=== PATIENT | female | born 1940 | race Caucasian/White ===

== ENCOUNTER 2024-08-30 19:06 | Outpatient (CLI) | payer MEDICARE, BC, SELFPAY | END 2024-08-30 19:07 | disposition home or self-care (01) | PROVIDERS: Visit Provider Family Medicine | DX: R53.1 Weakness (principal); R42 Dizziness and giddiness; R41.0 Disorientation, unspecified | CPT/HCPCS: A0425; A0429 ==

== ENCOUNTER 2024-08-30 19:48 | Observation (INO) | payer MEDICARE, BC, SELFPAY ==
[2024-08-30] VITALS (18 sets, daily range): BP systolic 109–128; BP diastolic 65–76; PULSE 84–100; RESP 16; TEMP 36.9; O2SAT 81–99; BMI 25.1
--- NOTE | 2024-08-30 20:05 | ED.GENADULT ---
HPI - General Adult General Chief complaint: Weakness Stated complaint: Fall Time Seen by Provider: 08/30/24 19:51 History of Present Illness HPI narrative: EMS states pt lives with [place] a farm and they do not see doctors. Pt is not on any medication. EMS states pt did not fall, she is merely weak and is experiencing confusion. Pt states to this nurse that Shantanu Conley is the president and she has lived on her farm for 150 years. 84-year-old woman presenting to the emergency department via EMS. Concern apparently of weakness. She denies any falls although does endorse a fall where she struck her head on stool few days ago. Apparently was well since that time. Denies any neck or back pain. Living with her her farm she reports. Feels generally well at this time and not sure why she is here other than her is to concerned. She felt a little weak earlier now she does not. Has no pain anywhere. No dysuria. No fevers. is not yet arrived Underlying history of dementia. Later with Damian present, clarifies that has been increasingly weak and reached a tipping point today. He is having increasing difficulty managing her physical needs at home and keeping her clean. He has a very hard time picking her up when she falls. Today she just could not get off the toilet. They do not have family around they feel can help at this point. Had been anticipating moving to town for more help. Related Data Home Medications ?Medication ?Instructions ?Recorded ?Confirmed No Known Home Medications 08/30/24 08/30/24 Allergies Allergy/AdvReac Type Severity Reaction Status Date / Time No Known Drug Allergies Allergy Verified 08/30/24 20:02 Review of Systems Status of ROS: Reports: unobtainable due to mental status (Answering only in the immediate) [facility] Social History Narrative: She and her live independently in their farm house. She was a homemaker. She does not smoke or drink alcohol. What is your current living situation?: I presently have a place to live Problems where you live: no known problems Problems where you live details: Denies In the past 12 months, utilities in danger of being shut off: no In past 12 months, lack of transportation kept you from medical appts, meetings, work, or getting things needed for daily living: no In the past 12 mos, have been you worried that your food would run out before you had money to buy more?: never true In the past 12 mos, the food you bought just didn't last and you didn't have money to buy more?: never true Smoking Status: Unknown if ever smoked Do you use any of these nicotine containing products: None How often do you have a drink containing alcohol: never How often do you have six or more drinks on one occasion: Never AUDIT-C Alcohol total score: 0 Non-prescribed substance use: denies use Caffeine: Yes (Coffee every now and then) How often does anyone, including family, friends and others, physically hurt you: never How often does anyone, including family, friends and others, insult or talk down to you: never How often does anyone, including family, friends and others, threaten you with harm: never How often does anyone, including family, friends and others, scream or curse at you: never service: No Exam Narrative: Exam Narrative: Very pleasant. NAD. Cranial nerves 2-12 intact. Resting easily in the bed. Breathing easily. Lungs are clear. Heart in mildly elevated rate and a regular rhythm. Distant but no murmur detected. Abdomen is soft nontender. Head looks to be atraumatic. Neck supple nontender. Back with moderate kyphosis of the thoracic spine is also nontender. No deformity noted. Extremities are without edema. She has some inversion of the left ankle more so than the right. Const: Vital Signs, click to edit/add: Vital Signs - 24 hr 08/30/24 19:54 08/30/24 19:54 08/30/24 19:57 Temperature 98.4 F Pulse Rate 100 97 Pulse Rate [Right Pulse Oximeter] 96 Respiratory Rate 16 Blood Pressure 116/76 Blood Pressure [Ri ght Upper Arm] 116/70 Pulse Oximetry 98 89 81 L Oxygen Delivery Me thod Room Air 08/30/24 20:00 08/30/24 20:15 08/30/24 20:18 Temperature Pulse Rate 96 94 Pulse Rate [Right Pulse Oximeter] Respiratory Rate Blood Pressure Blood Pressure [Ri ght Upper Arm] Pulse Oximetry 90 95 99 Oxygen Delivery Me thod 08/30/24 20:30 08/30/24 20:45 08/30/24 21:07 Temperature Pulse Rate 94 94 Pulse Rate [Right Pulse Oximeter] Respiratory Rate Blood Pressure 128/65 Blood Pressure [Ri ght Upper Arm] Pulse Oximetry 96 96 Oxygen Delivery Me thod 08/30/24 21:08 08/30/24 21:15 08/30/24 21:30 Temperature Pulse Rate 90 88 84 Pulse Rate [Right Pulse Oximeter] Respiratory Rate Blood Pressure Blood Pressure [Ri ght Upper Arm] Pulse Oximetry 97 96 97 Oxygen Delivery Me thod 08/30/24 21:31 08/30/24 21:45 08/30/24 22:01 Temperature Pulse Rate 88 85 84 Pulse Rate [Right Pulse Oximeter] Respiratory Rate Blood Pressure 117/76 109/66 Blood Pressure [Ri ght Upper Arm] Pulse Oximetry 98 97 95 Oxygen Delivery Me thod 08/30/24 22:02 08/30/24 22:15 08/30/24 22:30 Temperature Pulse Rate 84 86 84 Pulse Rate [Right Pulse Oximeter] Respiratory Rate Blood Pressure Blood Pressure [Ri ght Upper Arm] Pulse Oximetry 95 96 98 Oxygen Delivery Me thod 08/30/24 22:31 Temperature Pulse Rate 86 Pulse Rate [Right Pulse Oximeter] Respiratory Rate Blood Pressure 110/73 Blood Pressure [Ri ght Upper Arm] Pulse Oximetry 98 Oxygen Delivery Me thod Documenting provider has reviewed patient's vital signs: yes Course Vital Signs Vital signs: Initial Vital Signs Temperature 98.4 F 08/30/24 19:54 Temperature Source Temporal Artery Scan 08/30/24 19:54 Pulse Rate 100 08/30/24 19:54 Pulse Rhythm Regular 08/30/24 19:54 Pulse Strength 3+ Normal 08/30/24 19:54 Respiratory Rate 16 08/30/24 19:54 Blood Pressure 116/70 08/30/24 19:54 Blood Pressure Mean 85 08/30/24 19:54 Blood Pressure Position Supine 08/30/24 19:54 Pulse Oximetry 98 08/30/24 19:54 Oxygen Delivery Method Room Air 08/30/24 19:54 Vital Signs Temperature 98.4 F 08/30/24 19:54 Pulse Rate 100 08/30/24 19:54 Respiratory Rate 16 08/30/24 19:54 Blood Pressure 116/70 08/30/24 19:54 Pulse Oximetry 98 08/30/24 19:54 Oxygen Delivery Method Room Air 08/30/24 19:54 Temperature 98.4 F 08/31/24 00:53 Pulse Rate 88 08/31/24 00:53 Respiratory Rate 16 08/31/24 00:53 Blood Pressure 124/75 08/31/24 00:53 Pulse Oximetry 98 08/31/24 00:53 Oxygen Delivery Method Room Air 08/31/24 00:53 Medical Decision Making MDM Narrative Medical decision making narrative: Will check some basic labs and urine. Look for sources of infection particularly in lungs though she does have a respiratory symptoms and urine. I suspect there is some malnutrition here. Waiting for more information upon arrival of . Will continue to monitor here in the emergency department. Chest x-ray one-view chest independently reviewed by me is without clear infiltrate. INDICATION: Weakness. TECHNIQUE: Chest 1 views. COMPARISON: None. FINDINGS: Cardiovascular and mediastinum: Heart size and vasculature are normal in caliber and appearance. Lungs and pleural spaces: Interstitial prominence. No sign of infiltrate or mass. No sign of pleural effusion. No pneumothorax. Bones and soft tissues: No significant findings. IMPRESSION: Interstitial prominence, possibly chronic lung disease or infection. No focal consolidations. Dictated by Dandre Thibodeaux MD @ 08/30/2024 11:01:29 PM With recent fall weakness did decide to CT head Unremarkable for acute abnormality per my independent review. INDICATION: Weakness. Recent head injury. TECHNIQUE: Head CT without contrast. COMPARISON: None. FINDINGS: CSF spaces: Within normal limits for age. Brain parenchyma and extra-axial spaces: There are nonspecific low attenuation white matter changes consistent with chronic microvascular disease. No sign of mass, hemorrhage, or midline shift. Skull base and calvarium: The visualized paranasal sinuses and mastoid air cells demonstrate no acute or significant findings. The visualized orbits are grossly unremarkable. No skull fractures. IMPRESSION: No acute or significant findings. Please note that all CT scans at this facility use dose modulation, iterative reconstruction, and/or weight-based dosing when appropriate to reduce radiation dose to as low as reasonably achievable. Dictated by Ivan Adkins MD @ 08/30/2024 11:03:59 PM Labs are reassuring In attempting to mobilize in the emergency department requires 2 assist for transfer. Sounds like is too much to manage for at home. Have spoken with hospitalist who is thankfully accepting for admission. Lab Data Lab results reviewed: Yes I reviewed the patient's lab results Labs: Lab Results 08/30/24 08/30/24 08/30/24 Range/Units 09:05 20:18 22:15 WBC 10.47 (4.50-11.00) K/uL RBC 4.36 (4.00-5.20) m/uL Hgb 12.1 (12.0-16.0) gm/dL Hct 37.5 (33.0-51.0) % MCV 86 (80-100) fL MCH 28 (26-34) pg MCHC 32 (32-36) gm/dL RDW Coeff of Deep 12.8 (11.5-15.5) % Plt Count 448 H (140-440) K/uL Neut % (Auto) 76.6 H (42.0-72.0) % Lymph % (Auto) 6.8 L (20-44) % [place] % (Auto) 11.7 H (0.0-11.0) % Eos % (Auto) 3.0 (0.0-7.0) % Baso % (Auto) 0.3 (0.0-3.0) % Neut # (Auto) 8.00 H (1.7-7.0) K/uL Lymph # (Auto) 0.70 L (0.90-2.90) K/uL [place] # (Auto) 1.20 H (0.00-0.90) K/UL Eos # (Auto) 0.31 (0.00-0.50) K/uL Baso # (Auto) 0.03 (0.00-0.30) K/uL Abs Immat Gran (auto) 0.17 (0.00-0.30) K/uL Imm/Tot Granulo (auto) 1.6 % Sodium 136 (135-149) mmol/L Potassium 4.4 (3.6-5.1) mmol/L Chloride 99 (96-114) mmol/L Carbon Dioxide 30 (20-32) mmol/L Anion Gap 7 (7-15) mEq/L BUN 16 (7-30) mg/dL Creatinine 0.8 (0.5-1.5) mg/dL Estimated Creat Clear 40.72 Estimated GFR 73 ml/min Glucose 133 H (60-115) mg/dL Calcium 9.6 (8.4-10.6) mg/dL Troponin I < 0.01 (0.01-0.04) ng/mL Urine Color Yellow (Yellow) Urine Appearance Cloudy A (Clear) Urine pH 6.0 (5.0-8.5) Ur Specific [place] 1.025 (1.000-1.030) Urine Protein 1+ A (Negative) Urine Glucose (UA) Negative (Negative) Urine Ketones 1+ A (Negative) Urine Blood Negative (Negative) Urine Nitrite Negative (Negative) Urine Bilirubin 2+ A (Negative) Urine Urobilinogen 1.0 (0.2-1.0) Ur Leukocyte Esterase Negative (Negative) Urine RBC 0-2 (0-2) Urine WBC 2-5 (0-5) Ur Squamous Epith Cells Few (None-Few) Amorphous Sediment Moderate A (None) Urine Bacteria Few A (None) Urine Mucus Few A (None) SARS-CoV-2 (PCR) Negative SARS-CoV-2 (Negative) Influenza Type A (PCR) Negative PCR FLU A (Negative) Influenza Type B (PCR) Negative PCR FLU B (Negative) RSV (PCR) Negative PCR RSV (Negative) Discharge Plan Discharge Clinical Impression: Weakness, Dementia Patient Disposition: Admitted As Observation Condition: Stable
[2024-08-30 20:38] LABS: Basophils Absolute Auto 0.03 K/uL (0.00-0.30); Basophils Percent Auto 0.3 % (0.0-3.0); Eosinophils Absolute Auto 0.31 K/uL (0.00-0.50); Hematocrit 37.5 % (33.0-51.0); Hemoglobin* 12.1 gm/dL (12.0-16.0); Immature Granulocytes Abs Auto 0.17 K/uL (0.00-0.30); Immature Granulocytes Pct Auto 1.6 %; Lymphocytes Percent Auto 6.8 % (20-44); Mean Corpuscular HGB Conc 32 gm/dL (32-36); Mean Corpuscular Hemoglobin 28 pg (26-34); Mean Corpuscular Volume 86 fL (80-100); Monocytes Percent Auto 11.7 % (0.0-11.0); Neutrophils Percent Auto 76.6 % (42.0-72.0); Platelet Count* 448 K/uL (140-440); RDW Coefficient of Variation % 12.8 % (11.5-15.5); Red Blood Count 4.36 m/uL (4.00-5.20); White Blood Count* 10.47 K/uL (4.50-11.00)
[2024-08-30 20:47] LABS: Slide Review Reflex No
[2024-08-30 20:49] LABS: Chloride* 99 mmol/L (96-114); Sodium* 136 mmol/L (135-149)
[2024-08-30 20:50] LABS: Potassium* 4.4 mmol/L (3.6-5.1)
[2024-08-30 20:52] LABS: Blood Urea Nitrogen* 16 mg/dL (7-30); Creatinine* 0.8 mg/dL (0.5-1.5); Est. Creatinine Clearance* 40.72; Estimated Glomerular Filt Rate 73 ml/min
[2024-08-30 20:53] LABS: Anion Gap 7 mEq/L (7-15); Calcium* 9.6 mg/dL (8.4-10.6); Carbon Dioxide* 30 mmol/L (20-32); Glucose* 133 mg/dL (60-115)
[2024-08-30 21:10] LABS: Appearance Urine Cloudy (Clear); Bilirubin Urine 2+ (Negative); Blood Urine Negative (Negative); Color Urine Yellow (Yellow); Glucose Urine Negative (Negative); Ketones Urine 1+ (Negative); Leukocyte Esterase Urine Negative (Negative); Nitrite Urine Negative (Negative); Protein Urine 1+ (Negative); Specific Gravity Urine 1.025 (1.000-1.030)
[2024-08-30 21:10] LABS: Troponin I* < 0.01 ng/mL (0.01-0.04)
[2024-08-30 21:17] LABS: Amorphous Sediment Urine Moderate; Bacteria Urine Few; RBC Urine 0-2 (0-2); Squamous Epithelial Cell Urine Few (None-Few)
[2024-08-30 21:18] LABS: Mucus Urine Few
--- NOTE | 2024-08-30 22:10 | CRLHL7_ITS ---
For Patients: As a result of the Century Cures Act, medical imaging exams and procedure reports are released immediately into your electronic medical record. You may view this report before your referring provider. If you have questions, please contact your health care provider. INDICATION: Weakness. TECHNIQUE: Chest 1 views. COMPARISON: None. FINDINGS: Cardiovascular and mediastinum: Heart size and vasculature are normal in caliber and appearance. Lungs and pleural spaces: Interstitial prominence. No sign of infiltrate or mass. No sign of pleural effusion. No pneumothorax. Bones and soft tissues: No significant findings. IMPRESSION: Interstitial prominence, possibly chronic lung disease or infection. No focal consolidations. Dictated by Dandre Thibodeaux MD @ 08/30/2024 11:01:29 PM (Electronically Signed)
--- NOTE | 2024-08-30 22:30 | CRLHL7_ITS ---
For Patients: As a result of the Century Cures Act, medical imaging exams and procedure reports are released immediately into your electronic medical record. You may view this report before your referring provider. If you have questions, please contact your health care provider. INDICATION: Weakness. Recent head injury. TECHNIQUE: Head CT without contrast. COMPARISON: None. FINDINGS: CSF spaces: Within normal limits for age. Brain parenchyma and extra-axial spaces: There are nonspecific low attenuation white matter changes consistent with chronic microvascular disease. No sign of mass, hemorrhage, or midline shift. Skull base and calvarium: The visualized paranasal sinuses and mastoid air cells demonstrate no acute or significant findings. The visualized orbits are grossly unremarkable. No skull fractures. IMPRESSION: No acute or significant findings. Please note that all CT scans at this facility use dose modulation, iterative reconstruction, and/or weight-based dosing when appropriate to reduce radiation dose to as low as reasonably achievable. Dictated by Ivan Adkins MD @ 08/30/2024 11:03:59 PM (Electronically Signed)
[2024-08-30 22:57] LABS: PCR FLU A Negative PCR FLU A (Negative); PCR FLU B Negative PCR FLU B (Negative); PCR RSV Negative PCR RSV (Negative); SARS PCR* Negative SARS-CoV-2 (Negative)
[2024-08-31] VITALS (8 sets, daily range): BP systolic 108–127; BP diastolic 70–80; PULSE 84–92; RESP 16–20; TEMP 36.8–37.2; O2SAT 95–98; BMI 20.5
--- NOTE | 2024-08-31 00:54 | P.IMHP_ITS ---
Assessment and Plan Assessment and plan (1) Weakness: Problem comment: - Nothing acute. Gradually more and more weak over months. Occasional falls. I suspect declining cognitive function has also contributed to her staying in bed more and more and likely impaired her executive functioning leading to walking less and less, therefore leading to deconditioning, further exacerbating weakness - She is not having urinary symptoms that would suggest a UTI. No focal symptoms or sudden onset to suggest stroke or AMI. Labs are reassuring. - PT and OT evaluations - SW consult as she may need home health vs SNF vs assisting living Status: Acute (2) Falls: Problem comment: as above Status: Acute (3) Protein-calorie malnutrition, moderate: Problem comment: - Poor appetite and oral intake over months - Some muscle wasting and weakness - Nutritional supplements and consult Status: Acute (4) Cognitive impairment: Problem comment: - OT consulted for MOCA Status: Suspected Hospitalist- H&P: HPI History of Present Illness Time Seen by Provider: 00:15 Date Seen: 08/31/24 Chief complaint: Fall Narrative: Norma Douglas is a 84 year old female who has not seen a doctor in a very long time who came through the ER by EMS for weakness of arms and legs. Her , Brett, is here with her and helps give history. They tell me the weakness has been coming on a long time. When I ask them to pin it down, they say it has been going on many months. There has been no acute change in her condition. Brett tells me that she stays in bed all day and number goes outside anymore. In the last few months it has been harder for her to even get to the bathroom which is only 5-10 feet away from the bed. She is also having more trouble seeing and it sounds like she is being treated for macular degeneration at the local eye clinic. He has several assistive devices at home, including what sounds like lift. Even with these there have been some hairy situations, such as trying to get her in or out of the shower. He's installed handlebars the bathrooms and toilet risers, but even these are not enough help since her arms are also weak. It is getting to the point where he is concerned about her safety and cleanliness. She is not showering, her appetite is very poor, she is having trouble getting around, and lays in bed all day. He tells me that he just can not do it anymore and wants to know what is wrong with her. When I ask about her cognition and memory, he notes that it has been getting worse and she is forgetful some days. Then she each I am is a in in says that he is talking about himself. She denies any chest pain, shortness of breath, recent illness, focal numbness, weakness, or tingling, or urinary symptoms. She is not having any headaches. She occasionally complains of bilateral knee pain, the right hurts worse than the left, but is not hurting today. She had a fall about 3 days ago and hit her head on a stool, but there are no bruises or abrasions left over from that fall. She did not lose consciousness. Review of Systems Status of ROS: Reports: 10 or more systems reviewed and unremarkable except as noted in History and below [facility] Social History (Updated 08/31/24 @ 01:04 by Madina Wood MD) Narrative: She and her live independently in their farm house. She was a homemaker. She does not smoke or drink alcohol. What is your current living situation?: I presently have a place to live Problems where you live: no known problems Problems where you live details: Denies In the past 12 months, utilities in danger of being shut off: no In past 12 months, lack of transportation kept you from medical appts, meetings, work, or getting things needed for daily living: no In the past 12 mos, have been you worried that your food would run out before you had money to buy more?: never true In the past 12 mos, the food you bought just didn't last and you didn't have money to buy more?: never true Smoking Status: Unknown if ever smoked Do you use any of these nicotine containing products: None How often do you have a drink containing alcohol: never How often do you have six or more drinks on one occasion: Never AUDIT-C Alcohol total score: 0 Non-prescribed substance use: denies use Caffeine: Yes (Coffee every now and then) How often does anyone, including family, friends and others, physically hurt you : never How often does anyone, including family, friends and others, insult or talk down to you: never How often does anyone, including family, friends and others, threaten you with harm: never How often does anyone, including family, friends and others, scream or curse at you: never service: No Meds Home Medications and Allergies Home Medications ?Medication ?Instructions ?Recorded ?Confirmed ?Type No Known Home Medications 08/30/24 06/0 11/16 History Allergies Allergy/AdvReac Type Severity Reaction Status Date / Time No Known Drug Allergies Allergy Verified 08/30/24 20:02 Exam Narrative: Exam Narrative: General: No acute distress. Awake alert oriented to self, place, situation. HEENT: Normocephalic atraumatic, pupils equally round and reactive to light and accommodation. Oropharynx clear. Mucous membranes are moist. No cervical lymphadenopathy, thyromegaly or carotid bruits. No JVD. Cardiovascular: Regular rate and rhythm. No murmurs, gallops, or rubs. Chest: No increased work of breathing. Clear to auscultation bilaterally. No crackles or wheezes. Abdomen: Bowel sounds present. Soft, nondistended, nontender. No hepatosplenomegaly or masses. Extremities: Some muscle wasting of all extremities, especially noticeable in her hands. Full range of motion of hips and knees. There is some crepitus of the knees bilaterally. They are nontender to palpation. No edema, no cyanosis or clubbing. Skin: No jaundice, no pallor, no rashes. Neuro: There are no focal deficits. Romberg is negative. Cranial nerves 2-12 are intact. Extraocular movements are full. No nystagmus. No facial asymmetry. Tongue is midline. Peripheral vision and vision are grossly intact. Strength is 5/5 in all 4 extremities. DTRs intact and symmetric. Light touch sensation is intact in face body and extremities. Coordination is intact in upper and lower extremities. Const: Vital Signs, click to edit/add: Vital Signs - 24 hr 08/30/24 19:54 08/30/24 19:54 08/30/24 19:57 Temperature 98.4 F Pulse Rate 100 97 Pulse Rate [Right Pulse Oximeter] 96 Respiratory Rate 16 Blood Pressure 116/76 Blood Pressure [Ri ght Upper Arm] 116/70 Pulse Oximetry 98 89 81 L Oxygen Delivery Me thod Room Air 08/30/24 20:00 08/30/24 20:15 08/30/24 20:18 Temperature Pulse Rate 96 94 Pulse Rate [Right Pulse Oximeter] Respiratory Rate Blood Pressure Blood Pressure [Ri ght Upper Arm] Pulse Oximetry 90 95 [facility] 08/[facility] 20:30 08/30/24 20:45 08/30/24 21:07 Temperature Pulse Rate 94 94 Pulse Rate [Right Pulse Oximeter] Respiratory Rate Blood Pressure 128/65 Blood Pressure [Ri ght Upper Arm] Pulse Oximetry 96 96 [facility] 08/30/24 21:08 08/30/24 21:15 08/30/24 21:30 Temperature Pulse Rate 90 88 84 Pulse Rate [Right Pulse Oximeter] Respiratory Rate Blood Pressure Blood Pressure [Ri ght Upper Arm] Pulse Oximetry 97 96 97 [facility] 08/30/24 21:31 08/30/24 21:45 08/30/24 22:01 Temperature Pulse Rate 88 85 84 Pulse Rate [Right Pulse Oximeter] Respiratory Rate Blood Pressure 117/76 109/66 Blood Pressure [Ri ght Upper Arm] Pulse Oximetry 98 97 95 [facility] 08/30/24 22:02 08/30/24 22:15 08/30/24 22:30 Temperature Pulse Rate 84 86 84 Pulse Rate [Right Pulse Oximeter] Respiratory Rate Blood Pressure Blood Pressure [Ri ght Upper Arm] Pulse Oximetry 95 96 98 [facility] 08/30/24 22:31 Temperature Pulse Rate 86 Pulse Rate [Right Pulse Oximeter] Respiratory Rate Blood Pressure 110/73 Blood Pressure [Ri ght Upper Arm] Pulse Oximetry 98 [facility]xygen [facility] - H&P: Result Labs Labs: Short CBC 08/30/24 Range/Units 20:18 WBC 10.47 (4.50-11.00) K/uL Hgb 12.1 (12.0-16.0) gm/dL Hct 37.5 (33.0-51.0) % Plt Count 448 H (140-440) K/uL BMP 08/30/24 20:18 Sodium 136 Potassium 4.4 Chloride 99 Carbon Dioxide 30 BUN 16 Creatinine 0.8 Glucose 133 H Calcium 9.6 Cardiac Enzymes 08/30/24 Range/Units 20:18 Troponin I < 0.01 (0.01-0.04) ng/mL Urine 08/30/24 Range/Units 09:05 Urine Color Yellow (Yellow) Urine Appearance Cloudy A (Clear) Urine pH 6.0 (5.0-8.5) Ur Specific [place] 1.025 (1.000-1.030) Urine Protein 1+ A (Negative) Urine Glucose (UA) Negative (Negative) Ordering Physician: Rustam Thomas M.D. Date of Service: 08/30/24 Procedure(s): XR chest 1V Accession Number(s): [id number] cc: Provider,Not a Local; Rustam Thomas M.D.~ For Patients: As a result of the Cures Act, medical imaging exams and procedure reports are released immediately into your electronic medical record. You may view this report before your referring provider. If you have questions, please contact your health care provider. INDICATION: Weakness. TECHNIQUE: Chest 1 views. COMPARISON: None. FINDINGS: Cardiovascular and mediastinum: Heart size and vasculature are normal in caliber and appearance. Lungs and pleural spaces: Interstitial prominence. No sign of infiltrate or mass. No sign of pleural effusion. No pneumothorax. Bones and soft tissues: No significant findings. IMPRESSION: Interstitial prominence, possibly chronic lung disease or infection. No focal consolidations. Dictated by Dandre Thibodeaux MD @ 08/30/2024 11:01:29 PM (Electronically Signed) Ordering Physician: Rustam Thomas M.D. Date of Service: 08/30/24 Procedure(s): CT head/brain wo con Accession Number(s): [id number] cc: Provider,Not a Local; Rustam Thomas M.D.~ For Patients: As a result of the s Act, medical imaging exams and procedure reports are released immediately into your electronic medical record. You may view this report before your referring provider. If you have questions, please contact your health care provider. INDICATION: Weakness. Recent head injury. TECHNIQUE: Head CT without contrast. COMPARISON: None. FINDINGS: CSF spaces: Within normal limits for age. Brain parenchyma and extra-axial spaces: There are nonspecific low attenuation white matter changes consistent with chronic microvascular disease. No sign of mass, hemorrhage, or midline shift. Skull base and calvarium: The visualized paranasal sinuses and mastoid air cells demonstrate no acute or significant findings. The visualized orbits are grossly unremarkable. No skull fractures. IMPRESSION: No acute or significant findings. Please note that all CT scans at this facility use dose modulation, iterative reconstruction, and/or weight-based dosing when appropriate to reduce radiation dose to as low as reasonably achievable. Dictated by Ivan Adkins MD @ 08/30/2024 11:03:59 PM (Electronically Signed)
--- NOTE | 2024-08-31 06:37 | PC.NURSE ---
ADMISSION/SHIFT NOTE: Pt admitted at 0046 for weakness and increased confusion. Pt is alert and oriented to self, confused on situation/place/timing. Pt pleasantly confused, cooperative with cares. Dementia at baseline, caregiver is patient's . Patient unable to answer some of the questions such as pharmacy and medical history. Pt hallucinated overnight, seeing a half naked woman and man outside of her window, easily reoriented. Up with a 2 assist and [place] steady to BSC, continent of urine. VSS on room air. Denies pain. Admitted for weakness and potential need for a higher level of care.
--- NOTE | 2024-08-31 13:55 | P.IMPN_ITS ---
Assessment and Plan Assessment and plan (1) Dementia: Problem comment: Fairly severe dementia. Now at a point where her is reporting he is unable to continue to care for her Status: Acute (2) Weakness: Problem comment: - Nothing acute. Gradually more and more weak over months. Occasional falls. I suspect declining cognitive function has also contributed to her staying in bed more and more and likely impaired her executive functioning leading to walking less and less, therefore leading to deconditioning, further exacerbating weakness - She is not having urinary symptoms that would suggest a UTI. No focal symptoms or sudden onset to suggest stroke or AMI. Labs are reassuring. - PT and OT evaluations - SW consult as she may need home health vs SNF vs assisting living Status: Acute (3) Falls: Problem comment: as above Status: Acute (4) Discharge planning issues: Problem comment: is reporting is no longer able to care for her. Status: Acute Plan 84-year-old female with severe dementia living independently with her . He is reporting that he is having trouble providing the care that she needs. Will have social studies department chair and therapy assess her functional capabilities and her long-term needs and discussed with her ongoing plan of care for her Total Time Spent Total Time Spent: Total time spent today is 40 minutes in review of records, coordination of care and discussing with other providers ongoing plan of care Subjective Date Seen: 08/31/24 Interval history: Norma Douglas is a 84 year old female who has not seen a doctor in a very long time who came through the ER by EMS for weakness of arms and legs. Her , Brett, is here with her and helps give history. They tell me the weakness has been coming on a long time. When I ask them to pin it down, they say it has been going on many months. There has been no acute change in her condition. Brett tells me that she stays in bed all day and number goes outside anymore. In the last few months it has been harder for her to even get to the bathroom which is only 5-10 feet away from the bed. She is also having more trouble seeing and it sounds like she is being treated for macular degeneration at the local eye clinic. He has several assistive devices at home, including what sounds like lift. Even with these there have been some hairy situations, such as trying to get her in or out of the shower. He's installed handlebars the bathrooms and toilet risers, but even these are not enough help since her arms are also weak. It is getting to the point where he is concerned about her safety and cleanliness. She is not showering, her appetite is very poor, she is having trouble getting around, and lays in bed all day. He tells me that he just can not do it anymore and wants to know what is wrong with her. When I ask about her cognition and memory, he notes that it has been getting worse and she is forgetful some days. Then she each I am is a in in says that he is talking about himself. She denies any chest pain, shortness of breath, recent illness, focal numbness, weakness, or tingling, or urinary symptoms. She is not having any headaches. She occasionally complains of bilateral knee pain, the right hurts worse than the left, but is not hurting today. She had a fall about 3 days ago and hit her head on a stool, but there are no bruises or abrasions left over from that fall. She did not lose consciousness. 08/31/2024: Patient unable to give any further information today. She is oriented to being in the hospital but otherwise does not know why or how she got here. She has continues to specifically deny any concerns including no cold, cough, fever, sore throat, chest pain, abdominal pain, shortness of breath, lightheadedness, nausea, vomiting, bowel or bladder problems. Exam Narrative: Exam Narrative: She is alert and appears in no distress. Speech is normal. She is oriented to being in the hospital but otherwise can give no significant information about her current situation. Head is without trauma eyes normal. Oropharynx normal. Neck is supple out mass or adenopathy. Respirations are clear to auscultation. Cardiovascular: S1, S2, regular rate and rhythm. Abdomen: Bowel sounds active. Abdomen is soft without tenderness or mass. Extremities without significant edema. She has intact peripheral pulses. She moves all 4 extremities well. Const: Vital Signs, click to edit/add: Vital Signs - 24 hr 08/30/24 19:54 08/30/24 19:54 08/30/24 19:57 Temperature 98.4 F Pulse Rate 100 97 Pulse Rate [Radial ] Pulse Rate [Right Pulse Oximeter] 96 Respiratory Rate 16 Blood Pressure 116/76 Blood Pressure [Le ft Arm] Blood Pressure [Ri ght Upper Arm] 116/70 Pulse Oximetry 98 89 81 L [facility] 08/30/24 20:00 08/30/24 20:15 08/30/24 20:18 Temperature Pulse Rate 96 94 Pulse Rate [Radial ] Pulse Rate [Right Pulse Oximeter] Respiratory Rate Blood Pressure Blood Pressure [Le ft Arm] Blood Pressure [Ri ght Upper Arm] Pulse Oximetry 90 95 99 [facility] 08/30/24 20:30 08/30/24 20:45 08/30/24 21:07 Temperature Pulse Rate 94 94 Pulse Rate [Radial ] Pulse Rate [Right Pulse Oximeter] Respiratory Rate Blood Pressure 128/65 Blood Pressure [Le ft Arm] Blood Pressure [Ri ght Upper Arm] Pulse Oximetry 96 96 [facility] 08/30/24 21:08 08/30/24 21:15 08/30/24 21:30 Temperature Pulse Rate 90 88 84 Pulse Rate [Radial ] Pulse Rate [Right Pulse Oximeter] Respiratory Rate Blood Pressure Blood Pressure [Le ft Arm] Blood Pressure [Ri ght Upper Arm] Pulse Oximetry 97 96 97 [facility]xygen [facility] 08/30/24 21:31 08/30/24 21:45 08/30/24 22:01 Temperature Pulse Rate 88 85 84 Pulse Rate [Radial ] Pulse Rate [Right Pulse Oximeter] Respiratory Rate Blood Pressure 117/76 109/66 Blood Pressure [Le ft Arm] Blood Pressure [Ri ght Upper Arm] Pulse Oximetry 98 97 95 [facility]xygen [facility] 08/30/24 22:02 08/30/24 22:15 08/30/24 22:30 Temperature Pulse Rate 84 86 84 Pulse Rate [Radial ] Pulse Rate [Right Pulse Oximeter] Respiratory Rate Blood Pressure Blood Pressure [Le ft Arm] Blood Pressure [Ri ght Upper Arm] Pulse Oximetry 95 96 98 [facility] 08/30/24 22:31 08/31/24 00:53 08/31/24 00:53 Temperature 98.4 F Pulse Rate 86 Pulse Rate [Radial ] 88 Pulse Rate [Right Pulse Oximeter] Respiratory Rate 16 16 Blood Pressure 110/73 Blood Pressure [Le ft Arm] 124/75 Blood Pressure [Ri ght Upper Arm] Pulse Oximetry 98 98 98 Oxygen Delivery [facility] Room Air Room Air 08/31/24 04:00 08/31/24 08:00 08/31/24 08:00 Temperature 98.2 F 98.6 F Pulse Rate Pulse Rate [Radial ] 84 86 86 Pulse Rate [Right Pulse Oximeter] Respiratory Rate 18 18 18 Blood Pressure Blood Pressure [Le ft Arm] 124/74 120/70 Blood Pressure [Ri ght Upper Arm] Pulse Oximetry 98 96 Oxygen Delivery [facility] Room Air Room Air 08/31/24 11:52 Temperature 98.4 F Pulse Rate Pulse Rate [Radial ] 91 Pulse Rate [Right Pulse Oximeter] Respiratory Rate 18 Blood Pressure Blood Pressure [Le ft Arm] 108/72 Blood Pressure [Ri ght Upper Arm] Pulse Oximetry 96 Oxygen Delivery [facility] Room Air Documenting provider has reviewed patient's vital signs: yes Labs Labs: Laboratory Results - last 24 hr 08/30/24 08/30/24 08/30/24 09:05 20:18 22:15 WBC 10.47 RBC 4.36 Hgb 12.1 Hct 37.5 MCV 86 MCH 28 MCHC 32 RDW Coeff of Deep 12.8 Plt Count 448 H Neut % (Auto) 76.6 H Lymph % (Auto) 6.8 L [place] % (Auto) 11.7 H Eos % (Auto) 3.0 Baso % (Auto) 0.3 Neut # (Auto) 8.00 H Lymph # (Auto) 0.70 L [place] # (Auto) 1.20 H Eos # (Auto) 0.31 Baso # (Auto) 0.03 Abs Immat Gran (auto) 0.17 Imm/Tot Granulo (auto) 1.6 Sodium 136 Potassium 4.4 Chloride 99 Carbon Dioxide 30 Anion Gap 7 BUN 16 Creatinine 0.8 Estimated Creat Clear 40.72 Estimated GFR 73 Glucose 133 H Calcium 9.6 Troponin I < 0.01 Urine Color Yellow Urine Appearance Cloudy A Urine pH 6.0 Ur Specific [place] 1.025 Urine Protein 1+ A Urine Glucose (UA) Negative Urine Ketones 1+ A Urine Blood Negative Urine Nitrite Negative Urine Bilirubin 2+ A Urine Urobilinogen 1.0 Ur Leukocyte Esterase Negative Urine RBC 0-2 Urine WBC 2-5 Ur Squamous Epith Cells Few Amorphous Sediment Moderate A Urine Bacteria Few A Urine Mucus Few A SARS-CoV-2 (PCR) Negative SARS-CoV-2 Influenza Type A (PCR) Negative PCR FLU A Influenza Type B (PCR) Negative PCR FLU B RSV (PCR) Negative PCR RSV
--- NOTE | 2024-08-31 14:16 | PC.NURSE ---
end of shift. pt has been pleasant. she is alert x2. confused to month and year/ she is weak and confused. no pain. she is eating, drinking and voiding. PT and OT worked with her. no SL. was here. Pt was still taking about, seeing a half naked woman and man outside of her window, easily reoriented. Up with a 2 assist and walker to BR and chair, brief is on.
--- NOTE | 2024-08-31 16:19 | PC.SOCIAL ---
Discharge planning: Pt is being recommended by hospital staff to go to a facility at discharge that provides 24/7 assistance and supervision. Pt's states that he can no longer care for her at home. rack room worker met with the pt and her today at length to discuss discharge disposition options. Pt's in interested in [facility] for LTC or [facility] Enh[facility]. rack room worker secure emailed referrals to the Admission Coordinators at both facilities and is waiting for a response on admission status. Both facilities identified that they have female openings, but need to review the referral to see if they can meet the pt's needs. Social work to follow-up as needed.
[2024-09-01] VITALS (7 sets, daily range): BP systolic 91–114; BP diastolic 53–81; PULSE 83–98; RESP 16–20; TEMP 36.7–37; O2SAT 93–97
--- NOTE | 2024-09-01 06:13 | PC.NURSE ---
[id number]: Patient with dementia. Orientated to self and . Pleasant and cooperative. A1-2/walker/GB. Denies pain. Denies CP/N/V.
--- NOTE | 2024-09-01 14:04 | PM.IMPN1 ---
Assessment and Plan Assessment and plan (1) Dementia: Problem comment: Fairly severe dementia. [place] is 6/30 Now at a point where her is reporting he is unable to continue to care for her Status: Acute (2) Weakness: Problem comment: Chronic progressive. She is very sedentary at home. By her 's report she is eating poorly and this is likely contributing. Now needs 24/7 supervision and standby assist with ambulation. Status: Acute (3) Falls: Problem comment: Needs standby assist with standing and transferring Status: Acute (4) Discharge planning issues: Problem comment: is reporting is no longer able to care for her. Looking into alternative care arrangements. Status: Acute Plan Continue patient in hospital pending safe discharge plan. Total time spent is 40 minutes, almost all of that time was spent discussing with and other providers plan of disposition Subjective Date Seen: 09/01/24 Interval history: Norma Douglas is a 84 year old female who has not seen a doctor in a very long time who came through the ER by EMS for weakness of arms and legs. Her , Brett, is here with her and helps give history. They tell me the weakness has been coming on a long time. When I ask them to pin it down, they say it has been going on many months. There has been no acute change in her condition. Brett tells me that she stays in bed all day and number goes outside anymore. In the last few months it has been harder for her to even get to the bathroom which is only 5-10 feet away from the bed. She is also having more trouble seeing and it sounds like she is being treated for macular degeneration at the local eye clinic. He has several assistive devices at home, including what sounds like lift. Even with these there have been some hairy situations, such as trying to get her in or out of the shower. He's installed handlebars the bathrooms and toilet risers, but even these are not enough help since her arms are also weak. It is getting to the point where he is concerned about her safety and cleanliness. She is not showering, her appetite is very poor, she is having trouble getting around, and lays in bed all day. He tells me that he just can not do it anymore and wants to know what is wrong with her. When I ask about her cognition and memory, he notes that it has been getting worse and she is forgetful some days. Then she each I am is a in in says that he is talking about himself. She denies any chest pain, shortness of breath, recent illness, focal numbness, weakness, or tingling, or urinary symptoms. She is not having any headaches. She occasionally complains of bilateral knee pain, the right hurts worse than the left, but is not hurting today. She had a fall about 3 days ago and hit her head on a stool, but there are no bruises or abrasions left over from that fall. She did not lose consciousness. 08/31/2024: Patient unable to give any further information today. She is oriented to being in the hospital but otherwise does not know why or how she got here. She has continues to specifically deny any concerns including no cold, cough, fever, sore throat, chest pain, abdominal pain, shortness of breath, lightheadedness, nausea, vomiting, bowel or bladder problems. 09/01/2024: Patient has no concerns today. I spoke with her at length. We discussed her severe dementia and progressive disability. She needs 24 hour supervision and assistance with ambulation. He is struggling to care for her at home but also struggling about alternative living arrangements for her. It appears quite clear that her problems are progressive and that he will need additional help to care for her, if not now in the near future. On this basis he is considering alternative living arrangements. Exam Narrative: Exam Narrative: She is alert pleasant in no distress she is observed to walk with therapy with standby assist. She is able to feed herself breakfast. Breathing is unlabored. She is pleasant and cooperative. Const: Vital Signs, click to edit/add: Vital Signs - 24 hr 08/31/24 15:25 08/31/24 15:26 08/31/24 19:58 Temperature 98.4 F 98.9 F Pulse Rate [Radial ] 92 92 89 Respiratory Rate 18 18 20 Blood Pressure [Le ft Arm] 124/80 109/78 Pulse Oximetry 98 95 Oxygen Delivery Me [facility]od Room Air Room Air 08/31/24 23:04 09/01/24 02:13 09/01/24 07:48 Temperature 98.4 F 98.3 F 98.1 F Pulse Rate [Radial ] 91 92 95 Respiratory Rate 18 20 18 Blood Pressure [Le ft Arm] 127/75 109/70 99/71 Pulse Oximetry 97 96 97 Oxygen Delivery Me thod Room Air Room Air Room Air 09/01/24 12:41 Temperature 98.6 F Pulse Rate [Radial ] 98 Respiratory Rate 16 Blood Pressure [Le ft Arm] 114/75 Pulse Oximetry 93 Oxygen Delivery Me [facility]od Room Air Documenting provider has reviewed patient's vital signs: yes
--- NOTE | 2024-09-01 14:24 | PC.SOCIAL ---
Discharge planning: Pt's was present while the pt met with PT today. Pt's also spoke to Dr. York at length about future care for his . Pt's decided that he would like to have Leeann from [facility] come assess his . Leeann from [facility] came and assessed the pt and can accept her tomorrow in a room on their Memory Care Unit. Pt's will go over to [facility] this afternoon to finalize paperwork, etc. The [facility] van can pick the pt up tomorrow morning at 11:45am. Social work to follow-up as needed.
--- NOTE | 2024-09-01 23:25 | PC.NURSE ---
Shift Note: Pt requested attempting to use BSC to void. No weakness observed. However, pt significantly desaturates to low 70's just standing/pivoting to BSC and required up to 10 minutes to fully rebound to 88-90% on 3L/O2 via NC. Duo-neb given. Family brought in pt's Trelegy inhaler, she was able to take a dose at HS. With inactivity SpO2= 87-91% on 2L/O2 via NC. Temporal thermometer reading 99.4 and right sided expiratory Rhonchi heard on auscultation. MD updated and CXR obtained and unremarkable. Pt verbalizes increased anxiety about why she isn't improving. Pt stated she has dozed a couple times and woke up in her hospital bed thinking she was holding a cigarette. She asked What do I need to do to get a cigarette around here? Pt also c/o increased abdominal pain/nausea. NG output from [id number]= 400cc. Bowel sounds diminished. No BM.
[2024-09-02 01:34] VITALS: TEMP 36.9
[2024-09-02] MEDS: ACETAMINOPHEN 325 MG TABLET 975 MG PO (01:34)
[2024-09-02 01:37] VITALS: BP 118/88; PULSE 94; RESP 16; TEMP 36.6; O2SAT 97
--- NOTE | 2024-09-02 03:28 | PC.NURSE ---
Acquired Pt at 2300. Pt pleasant and cooperative. Awaiting Dischg to [facility] Wed. Up A1 and voiding. No IV present.
[2024-09-02 07:00] VITALS: BP 109/67; PULSE 81; RESP 18; TEMP 36.3; O2SAT 97
--- NOTE | 2024-09-02 10:48 | PM.DS1 ---
DS: Providers Provider Date Seen: 09/02/24 Date of admission: 08/31/24 00:23 Primary care physician: Not a Local Provider Admitting Clinician: Madina Wood MD Attending Physician on discharge: Chris oYrk MD Date of Discharge: 09/02/24 DS: Diagnosis Discharge Diagnosis (1) Dementia: Status: Acute Problem details: Fairly severe dementia. [place] is 6/30 Now at a point where her is reporting he is unable to continue to care for her (2) Weakness: Status: Acute Problem details: Chronic progressive. She is very sedentary at home. By her 's report she is eating poorly and this is likely contributing. Now needs 24/7 supervision and standby assist with ambulation. (3) Falls: Status: Acute Problem details: Needs standby assist with standing and transferring (4) Discharge planning issues: Status: Acute Problem details: is reporting is no longer able to care for her. Looking into alternative care arrangements. DS: Summary Hospital Course Hospital Course: Norma Douglas is a 84 year old female who has not seen a doctor in a very long time who came through the ER by EMS for weakness of arms and legs. Her , Brett, is here with her and helps give history. They tell me the weakness has been coming on a long time. When I ask them to pin it down, they say it has been going on many months. There has been no acute change in her condition. Brett tells me that she stays in bed all day and number goes outside anymore. In the last few months it has been harder for her to even get to the bathroom which is only 5-10 feet away from the bed. She is also having more trouble seeing and it sounds like she is being treated for macular degeneration at the local eye clinic. He has several assistive devices at home, including what sounds like lift. Even with these there have been some hairy situations, such as trying to get her in or out of the shower. He's installed handlebars the bathrooms and toilet risers, but even these are not enough help since her arms are also weak. It is getting to the point where he is concerned about her safety and cleanliness. She is not showering, her appetite is very poor, she is having trouble getting around, and lays in bed all day. He tells me that he just can not do it anymore and wants to know what is wrong with her. When I ask about her cognition and memory, he notes that it has been getting worse and she is forgetful some days. Then she each I am is a in in says that he is talking about himself. She denies any chest pain, shortness of breath, recent illness, focal numbness, weakness, or tingling, or urinary symptoms. She is not having any headaches. She occasionally complains of bilateral knee pain, the right hurts worse than the left, but is not hurting today. She had a fall about 3 days ago and hit her head on a stool, but there are no bruises or abrasions left over from that fall. She did not lose consciousness. During hospital stay evaluation did not show any acute illness or injury. Patient was not identified with significant chronic medical problems other than dementia. I had ongoing conversation with her about goals of care and prognosis. I anticipate gradual decline in cognitive functioning, worsening deconditioning and fall risk and ongoing problems with poor appetite and poor nutrition. Status at Discharge Functional status at discharge: uses cane/walker Overall status at discharge: other (Stable medical status with severe dementia) Time Spent with Patient Time attestation: Total time spent providing and/or coordinating discharge services: 20 minutes Exam Narrative: Exam Narrative: She is alert and appears in no distress. She is pleasant she reports no concerns today. Breathing is unlabored. She is feeding herself. Const: Vital Signs, click to edit/add: Vital Signs - 24 hr 09/01/24 12:41 09/01/24 15:29 09/01/24 19:00 Temperature 98.6 F 98.4 F 98.6 F Pulse Rate [Radial ] 98 83 96 Respiratory Rate 16 16 18 Blood Pressure [Le ft Arm] 114/75 91/53 L 104/67 Pulse Oximetry 93 97 97 Oxygen Delivery Me thod Room Air Room Air Room Air 09/01/24 23:13 09/01/24 23:30 09/02/24 01:34 Temperature 98.5 F 98.5 F Pulse Rate [Radial ] 88 88 Respiratory Rate 16 16 Blood Pressure [Le ft Arm] 113/81 Pulse Oximetry 97 Oxygen Delivery Me thod Room Air 09/02/24 01:37 09/02/24 07:00 Temperature 98 F 97.4 F L Pulse Rate [Radial ] 94 81 Respiratory Rate 16 18 Blood Pressure [Le ft Arm] 118/88 109/67 Pulse Oximetry 97 97 Oxygen Delivery Me thod Room Air Room Air Documenting provider has reviewed patient's vital signs: yes Discharge Plan Discharge Disposition: Xfer [facility] Date of Admission: 08/31/24 00:23 Attending Provider on Discharge: Jovani York Primary Care Provider: Provider,Not a Local Condition: Stable Discharge Medications: Continued [place] 0.01 % drops 1 drp ophthalmic (eye) QPM Qty: 10 0RF Discharge Orders: Discharge Order (Routine); Ordered 09/02/24 Ordered By: Jovani York Activity Level: Up with assist and Use Walker Discharge Diet: Regular Follow Up Appointments: Provider,Not a Local [Primary Care Provider, Family Practice] Forms: [employer] Info Instructions Admit to: Assisted Living Discharge Potential: Poor Length of Stay: >90 days Can use facility standing orders?: Yes Rehab Potential: Poor
--- NOTE | 2024-09-02 10:48 | PC.SOCIAL ---
Addendum entered and electronically signed by Mariel Figueroa LCSW 09/02/24 11:14: TRAVIS faxed discharge summary to Leeann at [facility]. Original Note: Discharge planning: TRAVIS called Leeann and left a voicemail requesting a call back to ensure everything is set for discharge. TRAVIS received a call from Leeann who states everything is set, she just needs the orders. TRAVIS faxed Leeann the orders to fax [phone]. TRAVIS to also send discharge summary when it is complete.
--- NOTE | 2024-09-02 12:22 | PC.NURSE ---
Discharge - Pt alert, oriented to self and place, very pleasant. Up with standby assistance and walker/gait belt. Denies pain, SOB, n/v. Tolerating RA and regular diet/fluids. Pt d/c to [facility] via wheelchair with [facility] commercial trailer truck driverNeel at approximately 1141.
== END 2024-09-02 11:41 ==
LOC: ED 23:12 → MEDSURG 08-31 00:24
PROVIDERS: Admitting Provider Family Medicine; Emergency Provider Family Medicine; Visit Provider Family Medicine
DX: R53.1 Weakness (principal); E44.0 Moderate protein-calorie malnutrition; R29.6 Repeated falls; F03.90 Unspecified dementia, unspecified severity, without behavioral disturbance, psychotic disturbance, mood disturbance, and anxiety; Z75.8 Other problems related to medical facilities and other health care
CPT/HCPCS: 36415; 70450; 71045; 80048; 81001; 84484; 85025; 87086; 87631; 94761; 97116; 97161; 97165; 97530; 97535; 99284; 99285; A9270; G0378